=== PATIENT | female | born 1990 | race Caucasian/White ===

== ENCOUNTER 2018-03-28 06:48 | Inpatient (IN) | payer OTHER ==
[2018-03-28] VITALS (40 sets, daily range): BP systolic 93–138; BP diastolic 52–90; PULSE 70–116; TEMP 98.1–98.9
[~2018-03-28] VITALS: Ht 170.2 cm; Wt 106.4 kg
[2018-03-28] MEDS ORDERED: PRENATAL1 TA7 PO (07:21)
[2018-03-28 08:30] LABS: BASO % 0.2 % (0.0-2.0); EOS # 0.1 (0.0-0.7); EOS % 0.8 % (0-4.0); GRAN # 8.2 (1.4-6.5); GRAN % 70.5 % (42.2-75.2); HEMOGLOBIN 12.8 g/dl (12.5-16.0); LYMPH # 2.3 (1.2-3.4); LYMPH % 19.9 % (20.0-51.0); MEAN CELL VOLUME 89 fl (80.0-100.0); MEAN CORPUSCULAR HEMOGLOBIN 30 pg (27.0-31.0); MEAN CORPUSCULAR HGB CONC 34 g/dl (33.0-37.0); MEAN PLATELET VOLUME 9.8 fl (7.4-10.4); MONO # 0.9 (0.1-0.6); MONO % 7.4 % (1.7-9.3); PLATELET COUNT 321 K/mm3 (130-400); RED BLOOD COUNT 4.29 M/mm3 (4.10-5.30); REDCELL DISTRIBUTION WIDTH-CV 14.6 % (11.5-14.5)
[2018-03-29 02:35] VITALS: BP 116/67; PULSE 87; TEMP 98.4
[2018-03-29 08:18] VITALS: BP 125/73; PULSE 83; TEMP 98.4
[2018-03-29] MEDS ORDERED: IBU800 M1 PO (09:02)
[2018-03-29 15:47] VITALS: BP 128/66; PULSE 83; TEMP 97.9
[2018-03-29 20:30] VITALS: BP 128/72; PULSE 80; TEMP 98.6
[2018-03-30 08:15] VITALS: BP 110/78; PULSE 78; TEMP 98.2
== END 2018-03-30 11:15 | disposition home or self-care (01) | DRG 775 ==
LOC: LDR 06:48 → OB 06:48 → LDR 08:19 → OB 17:45
PROVIDERS: Student in an Organized Health Care Education/Training Program
PROC: 10E0XZZ Delivery of Products of Conception, External Approach (ICD-10-PCS; principal; 2018-03-28)
PROC: 3E033VJ Introduction of Other Hormone into Peripheral Vein, Percutaneous Approach (ICD-10-PCS; 2018-03-28)
PROC: 10907ZC Drainage of Amniotic Fluid, Therapeutic from Products of Conception, Via Natural or Artificial Opening (ICD-10-PCS; 2018-03-28)
PROC: 0HQ9XZZ Repair Perineum Skin, External Approach (ICD-10-PCS; 2018-03-28)
DX: O13.4 Gestational [pregnancy-induced] hypertension without significant proteinuria, complicating childbirth (principal); Z3A.39 39 weeks gestation of pregnancy; Z37.0 Single live birth; O70.0 First degree perineal laceration during delivery
CPT/HCPCS: J2590; J7120

== ENCOUNTER 2022-01-18 22:38 | Inpatient (IN) | payer BC ==
[~2022-01-18] VITALS: Ht 170.2 cm; Wt 105.0 kg
[~2022-01-18 22:38] MED LIST: IBU800 M1 PO; PRENATAL1 TA7 PO
[2022-01-18 23:00] VITALS: BP 129/72; PULSE 104; TEMP 97.7
[2022-01-19] VITALS (33 sets, daily range): BP systolic 109–140; BP diastolic 51–85; PULSE 75–132; TEMP 97.5–98.5
[2022-01-19 00:42] LABS: BASO % 0.2 % (0.0-2.0); EOS # 0.1 K/mm3 (0.0-0.7); EOS % 0.6 % (0.0-4.0); GRAN # 6.7 K/mm3 (1.4-6.5); GRAN % 74.6 % (42.2-75.2); HEMATOCRIT 38.4 % (37.0-47.0); HEMOGLOBIN 13.4 g/dl (12.5-16.0); LYMPH # 1.4 K/mm3 (1.2-3.4); MEAN CELL VOLUME 87 fl (80.0-100.0); MEAN CORPUSCULAR HEMOGLOBIN 31 pg (27-31); MEAN CORPUSCULAR HGB CONC 35 g/dl (33.0-37.0); MEAN PLATELET VOLUME 9.2 fl (7.4-10.4); MONO # 0.7 K/mm3 (0.1-0.6); MONO % 7.6 % (1.7-9.3); PLATELET COUNT 321 K/mm3 (130-400); REDCELL DISTRIBUTION WIDTH-CV 14.3 % (11.5-14.5)
--- NOTE | 2022-01-19 10:45 | NUR ---
1000 SVE anterior lip/90/0. 1006 Dr. Olivares called for delivery. 1025 Dr. Olivares on unit reviewing FHR strip 1030 Dr Elias ivory in patient's room. Setting up for delivery. Nursery called in. 1034 Dr. Olivares and this RN begin pushing with patient. Miguel Whiting. Jean Rosen. and Clement Nowak also in room 1040 Spontaneous vaginal delivery of viable female infant. Infant stimulated and bulb suctioned. to mother's chest. Dr Olivares clamps cord and cut by FOB. Eric Rosen takes over care of infant. 1044 Spontaneous delivery of placenta. Fundal massage done. Small amt of bleeding noted. 2nd degree perineal laceration noted. Repaired by Dr. Olivares. Pitocin bolus started per protocol. Pt repositioned. Sarah care done. Clean pad placed under patient. Fundal massage done. Scant amt of bleeding noted. Firm/midline. Safety precautions and plan of care discussed. Pt verbalizes understanding.
--- NOTE | 2022-01-19 14:00 | NUR ---
Pt repositioned to . Epidural catheter removed and intact. Pt standby assist to bathroom. Changed into clean gown. Sarah care done. Clean underwear and pad placed. Wheelchaired to [facility]. Pt assisted into bed. Oriented to room, safety precautions and plan of care discussed. Pt verbalizes understanding.
[2022-01-20 02:09] VITALS: BP 112/64; PULSE 69; TEMP 97.2
[2022-01-20 06:45] VITALS: BP 107/58; PULSE 72; TEMP 97.3
[2022-01-20] MEDS ORDERED: IBU800 M1 PO (08:44)
--- NOTE | 2022-01-20 09:12 | NUR ---
Initial visit; Parents thanked Band Sawing Machine Operator for offering congratulations and God's blessings for the of their daughter. Band Sawing Machine Operator thanked family for choosing [facility].
== END 2022-01-20 12:35 | disposition home or self-care (01) | DRG 807 ==
LOC: LDRO 22:38 → LDR 23:17 → OB 23:17
PROVIDERS: ADMIT Student in an Organized Health Care Education/Training Program
PROC: 10E0XZZ Delivery of Products of Conception, External Approach (ICD-10-PCS; principal; 2022-01-19)
PROC: 0KQM0ZZ Repair Perineum Muscle, Open Approach (ICD-10-PCS; 2022-01-19)
DX: O99.284 Endocrine, nutritional and metabolic diseases complicating childbirth (principal); Z37.0 Single live birth; O10.92 Unspecified pre-existing hypertension complicating childbirth; E28.2 Polycystic ovarian syndrome; O70.1 Second degree perineal laceration during delivery; O99.214 Obesity complicating childbirth; O69.81X0 Labor and delivery complicated by cord around neck, without compression, not applicable or unspecified; Z3A.39 39 weeks gestation of pregnancy; Z86.16 Personal history of COVID-19
CPT/HCPCS: J2590; J7120

== ENCOUNTER 2024-09-11 23:18 | Inpatient (IN) | payer BC ==
[~2024-09-11] VITALS: Ht 167.6 cm; Wt 101.4 kg
--- NOTE | 2024-09-11 23:25 | NUR ---
Presents to L&D, ambulatory, with suspected rupture of membranes at 2200. Patient reports it was a small amount and yellow/brown mucous consistency.
[2024-09-11 23:30] VITALS: BP 123/71; PULSE 100; TEMP 98
[2024-09-11] MEDS ORDERED: LR 1,000 ML IV PRN ×2 (23:30→23:45)
--- NOTE | 2024-09-11 23:30 | NUR ---
Amnitrace inconclusive, small spots of green, no free fluid noted. Palpable bag of richey intact with SVE. SVE . Patient reports she was previously 1 cm dilated. States she plans for epidural, is uncomfortable with contractions, but well controlled, coping.
[2024-09-11] MEDS ORDERED: LR 1,000 ML IV SCH (23:45)
[2024-09-11] MEDS ORDERED: LR & Oxytocin 500 ML IV SCH (23:45)
[2024-09-12] VITALS (36 sets, daily range): BP systolic 82–125; BP diastolic 51–70; PULSE 73–114; TEMP 97.9–98.1
--- NOTE | 2024-09-12 | NUR ---
Requests epidural at this time. LR bolus begun.
[2024-09-12 00:14] LABS: HEMATOCRIT 37.8 % (37.0-47.0); HEMOGLOBIN 12.9 g/dl (12.5-16.0); MEAN CELL VOLUME 89 fl (80.0-100.0); MEAN CORPUSCULAR HEMOGLOBIN 30 pg (27-31); MEAN CORPUSCULAR HGB CONC 34 g/dl (33.0-37.0); MEAN PLATELET VOLUME 9.2 fl (7.4-10.4); PLATELET COUNT 295 K/mm3 (130-400); RED BLOOD COUNT 4.25 M/mm3 (4.10-5.30); REDCELL DISTRIBUTION WIDTH-CV 14.3 % (11.5-14.5)
[2024-09-12 00:29] LABS: LYMPHOCYTE 20 % (20.0-51.0); NEUTROPHILS 75 % (42.0-75.2); PLATELET ESTIMATE NORMAL (NORMAL)
[2024-09-12] MEDS ORDERED: ROPivacaine PF 0.2% 200 ML IV ONE (00:31)
--- NOTE | 2024-09-12 00:36 | NUR ---
Sitting upright for epidural placement.
[2024-09-12 00:38] LABS: BILIRUBIN,TOTAL 0.4 mg/dL (0.2-1.2); CALCIUM 9.2 mg/dL (8.4-10.2); CREATININE, serum 0.63 mg/dL (0.57-1.11); POTASSIUM 3.9 mEq/L (3.5-4.5); TOTAL PROTEIN 6.9 g/dl (6.2-8.1)
--- NOTE | 2024-09-12 00:40 | NUR ---
Airam Gómez CRNA, here for epidural placement per patient request. Time-out performed at this time.
--- NOTE | 2024-09-12 00:54 | NUR ---
Repositioned supine with wedge to left following epidural placement.
--- NOTE | 2024-09-12 00:54 | NUR ---
[id number]: Unable to trace FHR while patient sitting upright at edge of bed for epidural placement.
[2024-09-12] MEDS ORDERED: LR 500 ML IV PRN (01:15)
[2024-09-12] MEDS ORDERED: ePHEDrine 50 MG/10 ML VIAL IV PRN (01:15)
[2024-09-12] MEDS ORDERED: diphenhydrAMINE 50 MG/ML 1 ML VIAL IV PRN (01:15)
[2024-09-12] MEDS ORDERED: LR 1,000 ML IV ONE (01:15)
[2024-09-12] MEDS ORDERED: diphenhydrAMINE 25 MG CAP PO PRN (01:15)
[2024-09-12] MEDS ORDERED: Ondansetron 4 MG/2 ML VIAL IV PRN (01:15)
[2024-09-12] MEDS ORDERED: Naloxone 0.4 MG/ML VIAL IV PRN ×2 (01:15→05:00)
--- NOTE | 2024-09-12 02:33 | NUR ---
Repositioned left lateral with peanut ball.
[2024-09-12] MEDS ORDERED: Acetaminophen 500 MG TAB PO SCH (05:00)
[2024-09-12] MEDS ORDERED: Mag/Al Hydrox/Simeth Susp 30 ML CUP PO PRN (05:00)
[2024-09-12] MEDS ORDERED: Witch Hazel 50% Pads Bulk TUB TP PRN (05:00)
[2024-09-12] MEDS ORDERED: Loratadine 10 MG TAB PO PRN (05:00)
[2024-09-12] MEDS ORDERED: Phenylephrine/Mineral Oil/Petrolatum 57 GM TUBE RC PRN (05:00)
[2024-09-12] MEDS ORDERED: Measles/Mumps/Rubella Virus Vaccine Live w Diluent 0.5 ML VIAL SQ SCH (05:00)
[2024-09-12] MEDS ORDERED: Ibuprofen 600 MG TAB PO SCH (05:00)
[2024-09-12] MEDS ORDERED: Tdap Vaccine 0.5 ML SYRINGE IM SCH (05:00)
[2024-09-12] MEDS ORDERED: Magnes Hydrox (MOM) 80 MG/ML 30 ML CUP PO PRN (05:00)
[2024-09-12] MEDS ORDERED: oxyCODONE 5 MG TAB PO PRN (05:00)
--- NOTE | 2024-09-12 07:45 | NUR ---
2901 PT LEGS RETURN FULL FEELING.PT ABLE TO AMBULATE INTO THE BATHROOM WITHOUT DIFFICULTY, DIZZINESS,OR LIGHTHEADEDNESS.PT ABLE TO VOID AT THIS TIME. PERICARE PROVIDED.MESH PANTIES AND PAD APPLIED. PT ACCLIMATED TO ROOM 215.EDUCATION REVIEWED WITH PT AND SPOUSE.PT VERBALIZES UNDERSTANDING.
[2024-09-12] MEDS ORDERED: Sennosides/Docusate 8.6-50 MG TAB PO SCH (08:00)
[2024-09-12] MEDS ORDERED: IBU600 MG PO (09:11)
[2024-09-12] MEDS ORDERED: traZODone 50 MG TAB PO PRN (21:00)
[2024-09-13 00:45] VITALS: BP 122/61; PULSE 66; TEMP 97.8
[2024-09-13 07:30] VITALS: BP 113/64; PULSE 62; TEMP 98.2
== END 2024-09-13 09:58 | disposition home or self-care (01) | DRG 807 ==
LOC: LDRO 23:18 → LDR 23:23 → LDRO 23:44 → LDR 23:45 → OB 23:45
PROVIDERS: Obstetrics & Gynecology; ADMIT Student in an Organized Health Care Education/Training Program
PROC: 10E0XZZ Delivery of Products of Conception, External Approach (ICD-10-PCS; principal; 2024-09-12)
PROC: 0HQ9XZZ Repair Perineum Skin, External Approach (ICD-10-PCS; 2024-09-12)
DX: O32.1XX0 Maternal care for breech presentation, not applicable or unspecified (principal); Z37.0 Single live birth; O70.0 First degree perineal laceration during delivery; Z3A.39 39 weeks gestation of pregnancy
CPT/HCPCS: J2590; J2795; J7120